=== PATIENT | female | born 1995 | race Caucasian/White ===

== ENCOUNTER 2017-01-29 15:20 | Emergency (ER) | payer OTHER ==
--- NOTE | 2017-01-29 15:25 | EDPHY ---
H & P Time Seen by Provider: 01/29/17 15:24 HPI/ROS: CHIEF COMPLAINT: 2 minutes seizure HISTORY OF PRESENT ILLNESS: Patient is on Wellbutrin for depression and had her dose increased last week. She was in class today and had a seizure was brought in by paramedics. EMS reports that they spoke to the teacher was the reporting republican. The teachers child has epilepsy and she reports that the patient had a 2 minutes tonic-clonic seizure in class. She was confused on arrival. She arrives just saying she feels a little bit disoriented and confused. She denies headache or neck pain or weakness or numbness in extremities. Otherwise does not remember the incident. Further history not obtainable because the patient has amnesia to the event. REVIEW OF SYSTEMS: Eye: no change in vision ENT: no sore throat Cardiac: no chest pain or syncope Pulmonary: no cough or SOB Abdomen: no vomiting, diarrhea, abdominal pain Musculoskeletal: no back pain Skin: Abrasion on the bridge of her nose and the forehead. Neuro: no headache Constitutional: no fever : no urinary symptoms A comprehensive 10 point review of systems is otherwise negative aside from elements mentioned in the history of present illness. PAST MEDICAL HISTORY: Depression on Wellbutrin Social history: College student, no drugs General Appearance: Alert and conversant, cooperative. Eyes: No scleral icterus. ENT, Mouth: Normal mucous membranes. No tongue laceration or abrasion. Respiratory: Normal respiratory effort, breath sounds equal, lungs are clear to auscultation. Cardiovascular: Regular rate and rhythm. Gastrointestinal: Abdomen is soft and non tender. Neurological: Alert and oriented x3. Normally conversant. Face symmetric, normal movement and sensation in all extremities. Skin: Abrasion on the bridge of the nose and the left side of the forehead. Musculoskeletal: No peripheral edema and no joint swelling. No spinal tenderness. Psychiatric: Not agitated. Emergency Department course/MDM: Clear history of grand mal tonic-clonic seizure. Plan for EKG and labs as well as noncontrast head CT. If negative think the most likely source would be her Wellbutrin increased recently. 164: Normal head CT, personally interpreted and reviewed with Dr. Sheth. Possibility of Wellbutrin contributing to her seizure considered, warned not to take any further doses. Warned no driving until cleared by follow-up neurologist. Discussed with the patient's mother by phone at her request. 175: Discussed with Michaeltrang, recommends discharge home, presentation including long-acting Wellbutrin discussed. Discussed with the patient at this time. We will observe her until least 930 p.m. tonight. 1999: Stable, alert, appears normal with fluent speech to me at this time. 2134: Still clinically stable. She says she feels comfortable being discharged. She appears to have fluent speech, is not ataxic, normal sensorium. Constitutional: Initial Vital Signs Temperature (C) 36.6 C 01/29/17 15:30 Heart Rate 113 H 01/29/17 15:30 Respiratory Rate 20 01/29/17 15:30 Blood Pressure 141/97 H 01/29/17 15:30 O2 Sat (%) 98 01/29/17 15:30 O2 Delivery Mode Room Air Allergies/Adverse Reactions: No Known Allergies Allergy (Unverified 01/29/17 15:37) Home Medications: Medication Instructions Recorded Wellbutrin Sr 01/29/17 Medical Decision Making - Diagnostics EKG Interpretation: 12-lead EKG interpreted by me; official reading is in trace master. My interpretation is sinus tachycardia rate 105 normal intervals. Imaging Results: Imaging Impressions Head CT 01/29/17 15:25 Impression: 1. No significant intracranial abnormality seen. If symptoms worsen, additional imaging may be necessary. Findings discussed with Samm Hood M.D. at 16:43 hour, 01/29/2017. Differential Diagnosis: Differential diagnosis considered for a seizure including but not limited to electrolyte abnormality, alcohol withdrawal, medication noncompliance, head injury, and breakthrough seizure. - Data Points Laboratory Results: Laboratory Results 01/29/17 15:15 01/29/17 15:15 01/29/17 01/29/17 01/29/17 15:15 15:15 15:15 WBC 6.84 10^3/uL 10^3/uL (3.80-9.50) RBC 5.59 10^6/uL H 10^6/uL (4.18-5.33) Hgb 16.3 g/dL g/dL (12.6-16.3) Hct 47.9 % H % (38.0-47.0) MCV 85.7 fL fL (81.5-99.8) MCH 29.2 pg pg (27.9-34.1) MCHC 34.0 g/dL g/dL (32.4-36.7) RDW 12.7 % % (11.5-15.2) Plt Count 364 10^3/uL 10^3/uL (150-400) MPV 9.8 fL fL (8.7-11.7) Neut % (Auto) 56.2 % % (39.3-74.2) Lymph % (Auto) 36.0 % % (15.0-45.0) [place] % (Auto) 4.7 % % (4.5-13.0) Eos % (Auto) 1.8 % % (0.6-7.6) Baso % (Auto) 1.0 % % (0.3-1.7) Nucleat RBC Rel Count 0.0 % % (0.0-0.2) Absolute Neuts (auto) 3.85 10^3/uL 10^3/uL (1.70-6.50) Absolute Lymphs (auto) 2.46 10^3/uL 10^3/uL (1.00-3.00) Absolute Monos (auto) 0.32 10^3/uL 10^3/uL (0.30-0.80) Absolute Eos (auto) 0.12 10^3/uL 10^3/uL (0.03-0.40) Absolute Basos (auto) 0.07 10^3/uL 10^3/uL (0.02-0.10) Absolute Nucleated RBC 0.00 10^3/uL 10^3/uL (0-0.01) Immature Gran % 0.3 % % (0.0-1.1) Immature Gran # 0.02 10^3/uL 10^3/uL (0.00-0.10) Sodium 143 mEq/L mEq/L (134-144) Potassium 4.3 mEq/L mEq/L (3.5-5.2) Chloride 106 mEq/L mEq/L (97-110) Carbon Dioxide 13 mEq/l L mEq/l (22-31) Anion Gap 24 mEq/L H mEq/L (8-16) BUN 5 mg/dL L mg/dL (7-23) Creatinine 0.9 mg/dL mg/dL (0.6-1.0) Estimated GFR > 60 Glucose 80 mg/dL mg/dL (70-100) Calcium 10.6 mg/dL H mg/dL (8.5-10.4) Beta HCG, Qual NEGATIVE Medications Given: Discontinued Medications Acetaminophen (Tylenol) 650 mg PO EDNOW ONE Stop: 01/29/17 21:32 Last Admin: 01/29/17 21:36 Dose: 650 mg Departure - Departure Disposition: Home, Routine, Self-Care Clinical Impression: Grand mal seizure Condition: Good Instructions: New-Onset Seizure in Adults (ED) Additional Instructions: You need to stop taking the Wellbutrin and speak to your prescribing provider tomorrow about a substitute. I think this is 1 of the most likely reason that you had a seizure today. No driving until seen in the office and cleared to do so by follow-up neurology specialist Dr. Wong. Referrals: Papo Wong DO [Doctor of Osteopathy] - As per Instructions
[2017-01-29 15:33] VITALS: TEMP 97.9
[2017-01-29 15:35] LABS: % IMMATURE GRANULYOCYTES 0.3 % (0.0-1.1); ABSOLUTE IMMATURE GRANULOCYTES 0.02 10^3/uL (0.00-0.10); ADD DIFF? NO; ADD MORPH? NO; ADD SCAN? NO; ATYPICAL LYMPHOCYTE FLAG 20 (0-99); FRAGMENT RBC FLAG 0 (0-99); HEMATOCRIT 47.9 % (38.0-47.0); HEMOGLOBIN 16.3 g/dL (12.6-16.3); LEFT SHIFT FLG 0 (0-99); LIPEMIA HEMOLYSIS FLAG 90 (0-99); MEAN CELL HEMOGLOBIN 29.2 pg (27.9-34.1); MEAN CELL VOLUME 85.7 fL (81.5-99.8); MEAN PLATELET VOLUME 9.8 fL (8.7-11.7); PLATELET CLUMPS FLAG 0 (0-99); PLATELET COUNT 364 10^3/uL (150-400); RED BLOOD CELL COUNT 5.59 10^6/uL (4.18-5.33); RED CELL DISTRIBUTION WIDTH 12.7 % (11.5-15.2)
--- NOTE | 2017-01-29 15:44 | CPEKG ---
Heart Rate: 105 RR Interval: 571 P-R Interval: 116 QRSD Interval: 88 QT Interval: 332 QTC Interval: 439 P [place]: 71 QRS [place]: -9 T Wave [place]: 34 EKG Severity - OTHERWISE NORMAL ECG - EKG Impression: SINUS TACHYCARDIA Electronically Signed By: Samm Hood 29-Jan-2017 16:08:34
[2017-01-29 15:58] LABS: ANION GAP 24 mEq/L (8-16); CALCIUM 10.6 mg/dL (8.5-10.4); CARBON DIOXIDE 13 mEq/l (22-31); CHLORIDE 106 mEq/L (97-110); CREATININE 0.9 mg/dL (0.6-1.0); GLOMERULAR FILTRATION RATE > 60; GLUCOSE 80 mg/dL (70-100); POTASSIUM 4.3 mEq/L (3.5-5.2); SODIUM 143 mEq/L (134-144)
[2017-01-29 18:06] VITALS: O2SAT 97
[2017-01-29 20:01] VITALS: RESP 16
[2017-01-29] MEDS: ACETAMINOPHEN 325 MG TAB PO ONE (21:36)
[2017-01-29 22:01] VITALS: BP 123/81; PULSE 92
== END 2017-01-29 22:01 | disposition home or self-care (01) ==
DX: G40.409 Other generalized epilepsy and epileptic syndromes, not intractable, without status epilepticus (principal)

== ENCOUNTER → 2017-02-14 | Outpatient (CLI) | payer OTHER ==
--- NOTE | 2017-02-15 12:45 | CPEEG ---
[f rep st] ELECTROENCEPHALOGRAM DATE OF STUDY: 02/14/2017 DATE OF STUDY: February 14, 2017. INTRODUCTION: This is a multichannel EEG using the standard International 10- 20 System of disk electrode placement. A single EKG channel was monitored for the duration of the study. This study was undertaken for the evaluation of a seizure. No pertinent medications reported. The duration of the study was 30 minutes. DESCRIPTION OF RECORDING: In the maximal alert state, the patient achieved a symmetric posterior dominant rhythm of 11 Hz alpha activity that attenuated with eye opening. Activating measures including photic stimulation and hyperventilation were performed. Photic stimulation resulted in a driving response. Hyperventilation failed to activate the tracing. Drowsiness was observed as marked by slow roving eye movements, attenuation of the background, anterior spread of alpha and a few, brief bursts of generalized drowsy delta activity. No further sleep architecture was observed. The EKG demonstrated normal sinus rhythm. INTERPRETATION: Normal awake and drowsy EEG. CLINICAL CORRELATION: No focal lateralizing epileptiform discharges. /[id number]/MODL MTDD
== END ==
LOC: FCPNEURO 09:27
PROVIDERS: ATTEND Psychiatry & Neurology Neurology
DX: R56.9 Unspecified convulsions (principal)

== ENCOUNTER → 2017-02-15 | Outpatient (CLI) | payer OTHER ==
[~2017-02-15] MED LIST: GADOBUTROL 10 ML VIAL IVP ONE
== END ==
LOC: FIMAGING 18:45
PROVIDERS: ATTEND Psychiatry & Neurology Neurology
DX: R56.9 Unspecified convulsions (principal)
CPT/HCPCS: A9585